=== PATIENT | female | born 1965 | race Caucasian/White ===

== ENCOUNTER 2017-01-30 09:28 | Day surgery (SDC) | payer OTHER ==
[2017-01-30 09:38] VITALS: TEMP 97.7; BMI 23.3
--- NOTE | 2017-01-30 10:59 | PDOC ---
Attending Attestation - Resident Resident Name: RickYousifIgnacio - ED Attending Attestation I have performed the following: I have examined & evaluated the patient, The case was reviewed & discussed with the resident, I agree w/resident's findings & plan, Exceptions are as noted - HPI HPI: 01/30/17 10:52 51-year-old female to past medical history here today complaining of scalp cysts. She states she has had the cyst for about 6 months recently became slightly painful denies any fevers chills no drainage from them she did have a surgery many years ago to remove another cysts on her scalp denies cysts in other locations had seen Dr. Ruiz for the cyst in the past and this point he may decide taken out due to pain no other complaints or concerns no past medical history - Physicial Exam PE: 01/30/17 10:54 Awake alert no acute distress scalp with 2 palpable 1 cm cysts first in the right parieto-occipital region no overlying erythema or fluctuance rubbery in texture deep to the dermis second in the left lateral occipital region mild tenderness no overlying erythema or exudates cardiac and lung exam is normal no wheezes or crackles regular rate and no murmurs rubs or gallops abdomen is soft nontender skin is otherwise warm and dry without rash neuro she is a streaking is normal - Medical Decision Making 01/30/17 10:59 Plan will discuss with Dr. Valente for possible surgical excision due to the pain of these lesions labs sent to rule out infection patient seen by Dr. Rizo will take to the OR for excision <Any Muniz - Last Filed: 01/30/17 10:51> Heart Score/ECG Review - ECG Intrepretation Comment:: 01/30/17 11:00 EKG was reviewed by Dr. Muniz at 10:52. Impression: Normal sinus rhythm with sinus arrhythmia. <Angelica Bella - Last Filed: 01/30/17 11:01>
[2017-01-30 11:06] LABS: BASO % 0.7 % (0-2.0); MCH 29.2 pg (25.7-33.7); MCHC 32.8 g/dl (32.0-36.0); MEAN CELL VOLUME 88.9 fl (80-96); MEAN PLT VOLUME 8.5 fl (7.5-11.1); NEUT % 58.4 % (42.8-82.8); PLATELET COUNT 209 K/MM3 (134-434); RDW 13.7 % (11.6-15.6); WHITE BLOOD COUNT 4.9 K/mm3 (4.0-10.0)
--- NOTE | 2017-01-30 11:07 | PDOC ---
History of Present Illness - General Chief Complaint: Abscess Boil Stated Complaint: surgery / PCP SENT Time Seen by Provider: 01/30/17 10:29 - History of Present Illness Initial Comments: 01/30/17 11:11 51 yo F with no significant pmh who presents with scalp abscess. Patient reports 2 isolated left sided occiptal and right sided occiptal cyst for the past 2 years that have been slowly increasing in size. She is here today for preop/surgical removal. She denies HARMON, N/V, fevers/chills, tinnitus, lightheadedness, pain, pruritus, bleeding, discharge, oozing, or leaking. Past History - Past Medical History Allergies/Adverse Reactions: Allergies Allergy/AdvReac Type Severity Reaction Status Date / Time No Known Allergies Allergy Verified 01/30/17 09:34 Home Medications: Ambulatory Orders NK [No Known Home Medication] 01/30/17 COPD: No - Suicide/Smoking/Psychosocial Hx Smoking History: Never smoked Have you smoked in the past 12 months: No Information on smoking cessation initiated: No Hx Alcohol Use: No Drug/Substance Use Hx: No Substance Use Type: None *Physical Exam - Vital Signs Last Vital Signs Temp Pulse Resp BP Pulse Ox 97.7 F 80 18 121/80 100 01/30/17 09:35 01/30/17 09:35 01/30/17 09:35 01/30/17 09:35 01/30/17 09:35 - Physical Exam Comments: 01/30/17 11:19 GENERAL: Awake, alert, and fully oriented, in no acute distress HEAD: 1 cm right and left sided occiptal indurated lesion. Non erythematous, with absent pus, discharge, weeping. Slightly fluctuant. No signs of trauma, normocephalic, atraumatic EYES: PERRLA, EOMI, sclera anicteric, conjunctiva clear ENT: Auricles normal inspection, hearing grossly normal, nares patent, oropharynx clear without exudates. Moist mucosa NECK: Normal ROM, supple, no lymphadenopathy, JVD, or masses LUNGS: No distress, speaks full sentences, clear to auscultation bilaterally HEART: Regular rate and rhythm, normal S1 and S2, no murmurs, rubs or gallops, peripheral pulses normal and equal bilaterally. EXTREMITIES : Normal inspection, Normal range of motion, no edema. No clubbing or cyanosis. NEUROLOGICAL: Cranial nerves II through XII grossly intact. Normal speech, normal gait, no focal sensorimotor deficits SKIN: Warm, Dry, normal turgor, no rashes or lesions noted. ED Treatment Course - LABORATORY CBC & Chemistry Diagram: 01/30/17 10:54 01/30/17 10:52 Medical Decision Making - Medical Decision Making 01/30/17 11:23 51 yo F with no significant pmh who presents with 2 isolated left sided occiptal and right sided occiptal cyst for the past 2 years that have been slowly increasing in size. She is here today for preop/surgical removal. She denies HARMON, N/V, fevers/chills, tinnitus, lightheadedness, pain, pruritus, bleeding, discharge, oozing, or leaking. Physical exam reveals 1 cm right and left sided occipital indurated lesion. Non erythematous, with absent pus, discharge, weeping. Slightly fluctuant. No evidence of streaking. Pt. w/ no s/s infection, or purulent abscess. ED Course: 01/30/17 11:24 Patient stable for admission to [facility]. Surgeon Tobias Ruiz evaluated patient. *DC/Admit/Observation/Transfer Diagnosis at time of Disposition: Cyst - Discharge Dispostion Disposition: HOME Condition at time of disposition: Stable Admit: Yes Decision to Admit order Date/Time: 01/30/17 11:06 Admission to the [facility]. - Referrals Referrals: Kelvin Fleming MD [Primary Care Provider] - - Patient Instructions - Post Discharge Activity
[2017-01-30 11:21] LABS: INR 1.09 (0.82-1.09); PROTHROMBIN TIME (PATIENT) 12.3 SEC (9.98-11.88)
[2017-01-30 11:25] LABS: ALBUMIN 3.7 g/dl (3.4-5.0); ANION GAP 4 (8-16); BILIRUBIN,TOTAL 0.3 mg/dL (0.2-1.0); CALCIUM 8.5 mg/dL (8.5-10.1); CO2 29 mmol/L (21-32); CREATININE 0.5 mg/dL (0.55-1.02); GLUCOSE,RANDOM 81 mg/dL (74-106); SGOT/AST 14 U/L (15-37); SGPT/ALT 16 U/L (12-78); TOT PROT 6.7 g/dl (6.4-8.2)
[2017-01-30 11:26] LABS: ALK PHOS 60 U/L (45-117)
[2017-01-30] MEDS ORDERED: LIDOCAINE 1%/EPI 1:100000 (20 ML MULTI DOSE VIAL) ONE (11:30)
[2017-01-30] MEDS ORDERED: MIDAZOLAM HCL 2 MG/2 ML SINGLE DOSE VIAL ONE ×2 (11:58)
[2017-01-30] MEDS ORDERED: PROPOFOL 20 ML ONE (11:58)
[2017-01-30] MEDS ORDERED: LIDOCAINE 1%/EPI 1:100000 (50 ML MULTI DOSE VIAL) INF ONE (12:05)
--- NOTE | 2017-01-30 13:33 | CONSULT ---
Consult Consult Specialty:: Surgery Reason for Consultation:: pain at two scalp mass sites - History of Present Illness History of Present Illness: 51 female presents to the ER for pain at two masses noted in her scalp She was extremely concerned and wanted them excised - History Source History Provided By: Patient Limitations to Obtaining History: No Limitations - Alcohol/Substance Use Hx Alcohol Use: No - Smoking History Smoking history: Never smoked Have you smoked in the past 12 months: No Home Medications - Allergies Allergies/Adverse Reactions: Allergies Allergy/AdvReac Type Severity Reaction Status Date / Time No Known Allergies Allergy Verified 01/30/17 09:34 - Home Medications Home Medications: Ambulatory Orders NK [No Known Home Medication] 01/30/17 Family Disease History - Family Disease History Family History: Unremarkable Review of Systems - Review of Systems Constitutional: denies: Chills, Fever Neck: reports: No Symptoms Cardiovascular: reports: No Symptoms. denies: Chest Pain Respiratory: denies: Cough Gastrointestinal: denies: Abdominal Pain Neurological: denies: Change in LOC Pain Intensity: 2 Physical Exam Vital Signs: Vital Signs Temperature 97.7 F 01/30/17 09:35 Pulse Rate 80 01/30/17 09:35 Respiratory Rate 18 01/30/17 09:35 Blood Pressure 121/80 01/30/17 09:35 O2 Sat by Pulse Oximetry (%) 100 01/30/17 09:35 Constitutional: Yes: Calm HENT: Yes: Other (Right frontoparietal scal mass 4cm x 3cm, tender Left occipitoparietal scalp mass 3cm x 4cm, tender) Neck: Yes: WNL Cardiovascular: Yes: Regular Rate and Rhythm Respiratory: Yes: CTA Bilaterally Gastrointestinal: Yes: Soft. No: Tenderness Extremities: Yes: WNL Neurological: Yes: Alert, Oriented Labs: CBC, BMP 01/30/17 10:54 01/30/17 10:52 Problem List - Problems (1) Mass of scalp Code(s): R22.0 - LOCALIZED SWELLING, MASS AND LUMP, HEAD (2) Pain of scalp Code(s): R51 - HEADACHE Assessment/Plan Scalp mass x 2 with pain For excision
--- NOTE | 2017-01-30 13:34 | OP ---
Operative Note - Note: Operative Date: 01/30/17 Pre-Operative Diagnosis: Scalp mass x 2 with pain Operation: Excision of scalp mass x 2 Post-Operative Diagnosis: Same as Pre-op Surgeon: Tobias Ruiz Anesthesia: Local, MAC Specimens Removed: Scalp mass x 2 Estimated Blood Loss (mls): 5 Operative Report Dictated: Yes
--- NOTE | 2017-01-30 15:06 | EKG ---
Test Reason : Blood Pressure : / mmHG Vent. Rate : 067 BPM Atrial Rate : 067 BPM P-R Int : 170 ms QRS Dur : 070 ms QT Int : 408 ms P-R-T Axes : 047 -05 009 degrees QTc Int : 431 ms NORMAL SINUS RHYTHM WITH SINUS ARRHYTHMIA NORMAL ECG NO PREVIOUS ECGS AVAILABLE Confirmed by WHIT CLEMENTS MD ([id number]) on 01/30/2017 3:05:48 PM Referred By: Confirmed By:WHIT CLEMENTS MD
[2017-01-30 15:28] VITALS: BP 111/79; PULSE 68
--- NOTE | 2017-01-31 12:36 | OP ---
DATE OF OPERATION: 01/30/2017 SURGEON: Byrce Ruiz MD PREOPERATIVE DIAGNOSIS: Scalp mass x2. POSTOPERATIVE DIAGNOSIS: Scalp mass x2. PROCEDURE: Excision of scalp mass x2. Scalp mass No. 1 is on the right temporoparietal region and was approximately 4 cm x 3 cm in size. Dry Chain Offbearer mass No. 2 is approximately 3 cm x 4 cm in size and is in the left posterior occipitotemporal region. SPECIMENS: Scalp mass x2. ESTIMATED BLOOD LOSS: 5 mL. DRAINS: None. ANESTHESIA: MAC/local. REASON FOR PROCEDURE: This 51-year-old female presented to the emergency room with pain and severe discomfort, and 2 masses noted on her scalp. Because of the extent of her pain, she was consented for excision of the scalp masses. Risks and benefits of the procedure were explained. These included bleeding, infection, recurrence of the mass, wound dehiscence, WI, DVT, PE. She understood and signed informed consent. DESCRIPTION OF PROCEDURE: Patient was placed supine on the operating table. She underwent MAC by Anesthesia. Each individual scalp mass was prepped with Betadine in the usual sterile fashion. Time-out was performed. Incision was made over both levels of the masses, and both masses were dissected circumferentially. Allis clamps were used to grasp the masses, and the masses were further dissected. The masses were sent off the field as specimen. These were noted to be cystic masses, which were slightly ruptured with sebaceous material. Hemostasis was obtained at both areas with electrocautery and both wounds were irrigated. Then, 2-0 nylon sutures were used to reapproximate the skin, Betadine was placed on each of the wounds. Patient tolerated the procedure well, transferred to recovery room in stable condition. BRYCE RUIZ M.D. MARTHA/[id number]
--- NOTE | 2017-01-31 14:46 | PATH ---
Surgical Pathology Report Patient Name: KAZ BA Med. Rec. #: [id number] /Age/Gender: 1965 (Age: 51) / F Account: [id number] Location: AMBULATORY SURG Taken: 01/30/2017 Received: 01/30/2017 Reported: 01/31/2017 Physicians: Tobias Ruiz M.D. Specimen(s) Received A: SCALP MASS #1 B: SCALP MASS #2 Clinical History Preoperative diagnosis: Scalp mass x2 Final Diagnosis A. SKIN, SCALP MASS #1, EXCISION: TRICHILEMMAL CYST. B. SKIN, SCALP MASS #2, EXCISION: TRICHILEMMAL CYST. Electronically Signed Judd Schroeder M.D. Gross Description A. Received in formalin labeled "scalp mass #1," is a 1.5 x 1.2 x 0.4 cm focally disrupted cyst. Candy Puller sections are submitted in one cassette. B. Received in formalin labeled "scalp mass #2," is a 1.4 x 1.3 x 0.4 cm focally disrupted cyst and cyst contents. Candy Puller sections are submitted in one cassette. 01/30/2017 saudi01/30/2017
== END 2017-01-30 15:00 | disposition home or self-care (01) ==
LOC: JER 09:28 → JASUSAT 11:07
PROVIDERS: ATTEND Surgery
PROC: 0JB00ZZ Excision of Scalp Subcutaneous Tissue and Fascia, Open Approach (ICD-10-PCS; 2017-01-30)
PROC: 0HB1XZX Excision of Face Skin, External Approach, Diagnostic (ICD-10-PCS; principal; 2017-01-30 10:00)
DX: L72.12 Trichodermal cyst (principal)
CPT/HCPCS: 36415; 80053; 84703; 85025; 85610; 86850; 86900; 86901; 88304-TC; 93005; 93010; 99282-25

== ENCOUNTER 2021-03-31 09:17 | Emergency (ER) | payer OTHER ==
[2021-03-31 09:25] VITALS: BP 132/87; PULSE 82; BMI 23.1
[2021-03-31 09:32] VITALS: TEMP 98
[2021-03-31] MEDS ORDERED: KETOROLAC TROMETHAMINE 60 MG/2 ML VIAL IM ONE (10:09)
[2021-03-31] MEDS ORDERED: LIDOCAINE 5% TOPICAL PATCH TP ONE (10:09)
[2021-03-31] MEDS ORDERED: DIPHTH,PERTUSS(ACELL),TET 0.5 ML DISP.SYRIN IM ONE ×2 (10:09→10:33)
[2021-03-31] MEDS ORDERED: LIDOCAINE 5% TOPICAL PATCH ONE (10:33)
[2021-03-31] MEDS ORDERED: KETOROLAC TROMETHAMINE 30 MG/1 ML VIAL ONE (10:33)
[2021-03-31] MEDS ORDERED: LIDOCAINE PATCH REMOVAL MC SCH (22:00)
== END 2021-03-31 11:55 | disposition home or self-care (01) ==
LOC: JERFT 09:17
PROC: 3E0233Z Introduction of Anti-inflammatory into Muscle, Percutaneous Approach (ICD-10-PCS; principal; 2021-03-31)
PROC: 3E0234Z Introduction of Serum, Toxoid and Vaccine into Muscle, Percutaneous Approach (ICD-10-PCS; 2021-03-31)
DX: S61.211A Laceration without foreign body of left index finger without damage to nail, initial encounter (principal); M54.50 Low back pain, unspecified
CPT/HCPCS: 72100-TC-FY; 73130-TC-LT-FY; 90715; 99284-25